=== PATIENT | female | born 1970 | race Caucasian/White ===

== ENCOUNTER → 2017-03-14 | Outpatient (CLI) | payer BC ==
--- NOTE | 2017-03-15 11:02 | MM ---
Reason for exam: screening (asymptomatic). Last mammogram was performed 1 year and 3 months ago. Physical Findings: A clinical breast exam by your physician is recommended on an annual basis and results should be correlated with mammographic findings. MG Screening Mammo w CAD Bilateral CC and MLO view(s) were taken. Prior study comparison: December 25, 2015, bilateral MG screening mammo w CAD. December 02, 2014, bilateral MG screening mammo w CAD. The breast tissue is extremely dense which could obscure a lesion on mammography. There is no discrete abnormality. No significant changes when compared with prior studies. ASSESSMENT: Negative, BI-RAD 1 RECOMMENDATION: Routine screening mammogram of both breasts in 1 year.
== END ==
LOC: RADMAMWWP 16:38
PROVIDERS: ATTEND Obstetrics & Gynecology
DX: Z12.31 Encounter for screening mammogram for malignant neoplasm of breast (principal)

== ENCOUNTER → 2018-04-06 | Outpatient (CLI) | payer BC ==
--- NOTE | 2018-04-09 10:48 | MM ---
Reason for exam: screening (asymptomatic). Last mammogram was performed 1 year and 1 month ago. Physical Findings: A clinical breast exam by your physician is recommended on an annual basis and results should be correlated with mammographic findings. MG Screening Mammo w CAD Bilateral CC and MLO view(s) were taken. Prior study comparison: March 14, 2017, bilateral MG screening mammo w CAD. December 25, 2015, bilateral MG screening mammo w CAD. The breast tissue is extremely dense which could obscure a lesion on mammography. No suspicious abnormality. No significant changes when compared with prior studies. ASSESSMENT: Negative, BI-RAD 1 RECOMMENDATION: Routine screening mammogram of both breasts in 1 year.
== END ==
LOC: RADMAMWWP 16:41
PROVIDERS: ATTEND Obstetrics & Gynecology
DX: Z12.31 Encounter for screening mammogram for malignant neoplasm of breast (principal)
CPT/HCPCS: 77067

== ENCOUNTER → 2018-11-19 | Outpatient (CLI) | payer BC ==
--- NOTE | 2018-11-20 08:59 | XR ---
EXAM TYPE: LUMBAR SPINE X RAY SERIES COMPARISON: NONE HISTORY: Lower back pain TECHNIQUE: 3 views are submitted. FINDINGS: Alignment is anatomic. The pedicles are intact. The transverse processes are intact. There is no s pondylolysis or spondylolisthesis. IMPRESSION: 1. No acute process. If symptoms persist or concern for disc herniation recommend follow-up MRI.
== END | disposition home or self-care (01) ==
LOC: RADXRMAIN 16:42
PROVIDERS: ATTEND Family Medicine
DX: M54.5 Low back pain (principal)
CPT/HCPCS: 72100

== ENCOUNTER 2019-01-20 08:47 | Emergency (ER) | payer BC ==
[2019-01-20 08:54] VITALS: RESP 16
[2019-01-20] MEDS ORDERED: SODIUM CHLORIDE 0.9% 1,000 ML IV STA (09:07)
--- NOTE | 2019-01-20 09:22 | ED ---
GI Bleed HPI - General Chief complaint: GI Bleed Stated complaint: diarrhea Time Seen by Provider: 01/20/19 09:06 Source: patient, RN notes reviewed Mode of arrival: wheelchair Limitations: no limitations - History of Present Illness Initial comments: This a 48-year-old female presents emergency Department with chief complaint of abdominal pain, diarrhea and rectal bleeding. Patient states that symptoms started last night and have progressed. Patient states pain does wax and wane her pain is primarily in the lower abdomen on the right side. She's had no prior abdominal surgeries. Patient reports no noted fevers or chills. Patient denies any recent travel and no sick contacts no recent antibiotic use. She has no history of diverticulitis or any known form of colitis. Patient denies any blood thinners denies chest pain or shortness breath. She does admit to slight nausea no vomiting. - Related Data Previous Rx's Medication Instructions Recorded Dicyclomine [Bentyl] 20 mg PO TID #30 tablet 01/20/19 Allergies Allergy/AdvReac Type Severity Reaction Status Date / Time No Known Allergies Allergy Verified 01/20/19 08:53 Review of Systems ROS Statement: Those systems with pertinent positive or pertinent negative responses have been documented in the HPI. ROS Other: All systems not noted in ROS Statement are negative. Past Medical History Past Medical History: No Reported History History of Any Multi-Drug Resistant Organisms: None Reported Past Surgical History: No Surgical Hx Reported Past Psychological History: No Psychological Hx Reported Smoking Status: Never smoker Past Alcohol Use History: None Reported Past Drug Use History: None Reported General Exam Limitations: no limitations General appearance: alert, in no apparent distress Head exam: Present: atraumatic, normocephalic, normal inspection Neck exam: Present: normal inspection, full ROM. Absent: tenderness, meningismus, lymphadenopathy Respiratory exam: Present: normal lung sounds bilaterally. Absent: respiratory distress, wheezes, rales, rhonchi, stridor Cardiovascular Exam: Present: regular rate, normal rhythm, normal heart sounds. Absent: systolic murmur, diastolic murmur, rubs, gallop, clicks GI/Abdominal exam: Present: soft, tenderness (Mild to moderate right lower quadrant), normal bowel sounds. Absent: distended, guarding, rebound, rigid Back exam: Absent: CVA tenderness (R), CVA tenderness (L) Neurological exam: Present: alert, oriented X3, CN II-XII intact Skin exam: Present: warm, dry, intact, normal color. Absent: rash Course Vital Signs 01/20/19 08:50 Temperature 98.1 F Pulse Rate 70 Respiratory 16 Rate Blood Pressure 114/80 O2 Sat by Pulse 100 Oximetry Medical Decision Making - Medical Decision Making 48 show female presented for diarrhea abdominal discomfort. Patient states pain is been waxing and waning. CT shows no acute findings, lab work shows mild leukocytosis. Patient was hydrated. Patient we discharged with Bentyl and follow-up with GI. This most likely related to internal hemorrhoids versus colitis. Patient is stable for discharge her hemoglobin within normal limits. - Lab Data Result diagrams: 01/20/19 09:15 01/20/19 09:15 Lab Results 01/20/19 01/20/19 01/20/19 Range/Units 09:15 09:15 09:15 WBC 15.6 H (3.8-10.6) k/uL RBC 4.30 (3.80-5.40) m/uL Hgb 14.0 (11.4-16.0) gm/dL Hct 42.8 (34.0-46.0) % MCV 99.5 (80.0-100.0) fL MCH 32.7 (25.0-35.0) pg MCHC 32.8 (31.0-37.0) g/dL RDW 11.4 L (11.5-15.5) % Plt Count 244 (150-450) k/uL Neutrophils % 89 % Lymphocytes % 6 % Monocytes % 4 % Eosinophils % 1 % Basophils % 0 % Neutrophils # 13.9 H (1.3-7.7) k/uL Lymphocytes # 0.9 L (1.0-4.8) k/uL Monocytes # 0.6 (0-1.0) k/uL Eosinophils # 0.1 (0-0.7) k/uL Basophils # 0.0 (0-0.2) k/uL APTT (22.0-30.0) sec Sodium 139 (137-145) mmol/L Potassium 4.0 (3.5-5.1) mmol/L Chloride 103 (98-107) mmol/L Carbon Dioxide 24 (22-30) mmol/L Anion Gap 12 mmol/L BUN 16 (7-17) mg/dL Creatinine 0.68 (0.52-1.04) mg/dL Est GFR (CKD-EPI)AfAm >90 (>60 ml/min/1.73 sqM) Est GFR (CKD-EPI)NonAf >90 (>60 ml/min/1.73 sqM) Glucose 116 H (74-99) mg/dL Plasma Lactic Acid True 1.4 (0.7-2.0) mmol/L Calcium 9.5 (8.4-10.2) mg/dL Magnesium 1.8 (1.6-2.3) mg/dL Total Bilirubin 0.6 (0.2-1.3) mg/dL AST 31 (14-36) U/L ALT 30 (9-52) U/L Alkaline Phosphatase 57 (38-126) U/L Total Protein 7.8 (6.3-8.2) g/dL Albumin 4.8 (3.5-5.0) g/dL Urine Color Urine Appearance (Clear) Urine pH (5.0-8.0) Ur Specific [place] (1.001-1.035) Urine Protein (Negative) Urine Glucose (UA) (Negative) Urine Ketones (Negative) Urine Blood (Negative) Urine Nitrite (Negative) Urine Bilirubin (Negative) Urine Urobilinogen (<2.0) mg/dL Ur Leukocyte Esterase (Negative) Urine RBC (0-5) /hpf Urine WBC (0-5) /hpf Ur Squamous Epith Cells (0-4) /hpf Urine Bacteria (None) /hpf Urine Mucus (None) /hpf 01/20/19 01/20/19 Range/Units 09:15 09:15 WBC (3.8-10.6) k/uL RBC (3.80-5.40) m/uL Hgb (11.4-16.0) gm/dL Hct (34.0-46.0) % MCV (80.0-100.0) fL MCH (25.0-35.0) pg MCHC (31.0-37.0) g/dL RDW (11.5-15.5) % Plt Count (150-450) k/uL Neutrophils % % Lymphocytes % % Monocytes % % Eosinophils % % Basophils % % Neutrophils # (1.3-7.7) k/uL Lymphocytes # (1.0-4.8) k/uL Monocytes # (0-1.0) k/uL Eosinophils # (0-0.7) k/uL Basophils # (0-0.2) k/uL APTT 22.1 (22.0-30.0) sec Sodium (137-145) mmol/L Potassium (3.5-5.1) mmol/L Chloride (98-107) mmol/L Carbon Dioxide (22-30) mmol/L Anion Gap mmol/L BUN (7-17) mg/dL Creatinine (0.52-1.04) mg/dL Est GFR (CKD-EPI)AfAm (>60 ml/min/1.73 sqM) Est GFR (CKD-EPI)NonAf (>60 ml/min/1.73 sqM) Glucose (74-99) mg/dL Plasma Lactic Acid True (0.7-2.0) mmol/L Calcium (8.4-10.2) mg/dL Magnesium (1.6-2.3) mg/dL Total Bilirubin (0.2-1.3) mg/dL AST (14-36) U/L ALT (9-52) U/L Alkaline Phosphatase (38-126) U/L Total Protein (6.3-8.2) g/dL Albumin (3.5-5.0) g/dL Urine Color Yellow Urine Appearance Clear (Clear) Urine pH 7.5 (5.0-8.0) Ur Specific [place] 1.018 (1.001-1.035) Urine Protein Trace H (Negative) Urine Glucose (UA) Negative (Negative) Urine Ketones Negative (Negative) Urine Blood Trace H (Negative) Urine Nitrite Negative (Negative) Urine Bilirubin Negative (Negative) Urine Urobilinogen <2.0 (<2.0) mg/dL Ur Leukocyte Esterase Negative (Negative) Urine RBC 5 (0-5) /hpf Urine WBC 4 (0-5) /hpf Ur Squamous Epith Cells 2 (0-4) /hpf Urine Bacteria Rare H (None) /hpf Urine Mucus Few H (None) /hpf Disposition Clinical Impression: Diarrhea, Colitis Disposition: HOME SELF-CARE Condition: Stable Instructions (If sedation given, give patient instructions): Gastrointestinal Bleeding (ED) Additional Instructions: Please return to the Emergency Department if symptoms worsen or any other concerns. Prescriptions: Dicyclomine [Bentyl] 20 mg PO TID #30 tablet Is patient prescribed a controlled substance at d/c from ED?: No Referrals: Jay Martinez DO [Primary Care Provider] - 1-2 days Stephanie Vidal MD [STAFF PHYSICIAN] - 1-2 days Time of Disposition: 10:30
[2019-01-20 09:25] LABS: Basophils % (A) 0 %; Eosinophils # (A) 0.1 k/uL (0-0.7); Eosinophils % (A) 1 %; HCT 42.8 % (34.0-46.0); Lymphocytes # (A) 0.9 k/uL (1.0-4.8); Lymphocytes % (A) 6 %; MCH 32.7 pg (25.0-35.0); MCHC 32.8 g/dL (31.0-37.0); MCV 99.5 fL (80.0-100.0); Mean Platelet Volume 7.4; Monocytes # (A) 0.6 k/uL (0-1.0); Monocytes % (A) 4 %; Neutrophils # (A) 13.9 k/uL (1.3-7.7); Neutrophils % (A) 89 %; Platelet Count 244 k/uL (150-450); RDW 11.4 % (11.5-15.5); WBC 15.6 k/uL (3.8-10.6)
[2019-01-20 09:35] LABS: ALT 30 U/L (9-52); AST 31 U/L (14-36); African American GFR (CKD) >90 (>60 ml/min/1.73 sqM); Albumin 4.8 g/dL (3.5-5.0); Alkaline Phosphatase 57 U/L (38-126); Anion Gap 12 mmol/L; Blood Urea Nitrogen 16 mg/dL (7-17); Calcium 9.5 mg/dL (8.4-10.2); Carbon Dioxide 24 mmol/L (22-30); Chloride 103 mmol/L (98-107); Glucose 116 mg/dL (74-99); Magnesium 1.8 mg/dL (1.6-2.3); Sodium 139 mmol/L (137-145); Total Bilirubin 0.6 mg/dL (0.2-1.3); Total Protein 7.8 g/dL (6.3-8.2)
[2019-01-20 09:49] LABS: Appearance,Urine Clear (Clear); Bacteria,Urine Rare /hpf; Bilirubin,Urine Negative (Negative); Blood,Urine Trace (Negative); Color,Urine Yellow; Glucose,Urine (UA) Negative (Negative); Ketones,Urine Negative (Negative); Leukocyte Esterase,Urine Negative (Negative); Mucus,Urine Few /hpf; Nitrite,Urine Negative (Negative); PH, Urine 7.5 (5.0-8.0); Protein,Urine Trace (Negative); RBC,Urine 5 /hpf (0-5); Specific Gravity,Urine 1.018 (1.001-1.035); Squamous Epithelial Cell,Urine 2 /hpf (0-4); Urobilinogen,Urine <2.0 mg/dL (<2.0)
--- NOTE | 2019-01-20 10:05 | CT ---
EXAMINATION TYPE: CT abdomen pelvis w con DATE OF EXAM: 01/20/2019 REFERENCE: NONE HISTORY: Pain HISTORY: Diarrhea, GI bleed REFERENCE: NONE CT DLP: 429.4 mGy Automated exposure control for dose reduction was used. TECHNIQUE: Helical acquisition through the abdomen and pelvis was obtained following the oral ingesti on of without Oral Contrast and following intravenous administration of 100 ml mL of Isovue 300. The data was reformatted in axial, coronal and sagittal projections. FINDINGS: Visualized portions of the lungs are clear. There is a mild pectus deformity. There is a 4 .5 mm pericardial effusion. There is no pleural effusion Within the abdomen, the liver, spleen and gallbladder are normal. Both adrenal glands are normal. There is a horseshoe kidney. There is a simple appearing, 12 mm cyst in the upper pole of the left re nal moiety. There is an 8 mm cyst near pole right renal moiety. 6.3 cm solid mass in the uterine fundus likely representing a fibroid. Right ovary is unremarkable. T he left ovary is not clearly visualized. The bladder is unremarkable. There is no significant diverticular change and there is no radiographic evidence of diverticulosis. The appendix is not visualized with certainty. Small bowel loops are normal caliber. There is no evidence of free air. There is a scant amount of fr ee fluid. No osseous lesion is seen. IMPRESSION: 1. HORSESHOE KIDNEY. 2. SIMPLE APPEARING UPPER POLE CYST IN BOTH KIDNEYS. 3. 4.5 MM PERICARDIAL EFFUSION. 4. 6.3 SOLID MASS IN THE UTERINE FUNDUS LIKELY REPRESENTS A FIBROID.
[2019-01-20] MEDS ORDERED: ONDANSETRON 4 MG/2 ML VIAL IVP STA (10:17)
[2019-01-20] MEDS ORDERED: MORPHINE SULFATE 2 MG/ML SYRINGE IVP ONE (10:17)
[2019-01-20] MEDS ORDERED: DICYCLOMINE 20 MG TAB PO STA (10:18)
[2019-01-20 11:07] VITALS: BP 111/59; PULSE 66; TEMP 98
== END 2019-01-20 11:09 | disposition home or self-care (01) ==
LOC: EC 08:47
DX: K52.9 Noninfective gastroenteritis and colitis, unspecified (principal); N28.1 Cyst of kidney, acquired
CPT/HCPCS: 99284; 96374; 96375; 96361; 36415; 80053; 83605; 83735; 85025; 85730; 81001; 74177; J2405; J2270; Q9967

== ENCOUNTER → 2019-05-02 | Outpatient (CLI) | payer BC ==
--- NOTE | 2019-05-03 11:04 | MM ---
Reason for exam: screening (asymptomatic). Last mammogram was performed 1 year and 1 month ago. Physical Findings: A clinical breast exam by your physician is recommended on an annual basis and results should be correlated with mammographic findings. MG Screening Mammo w CAD Bilateral CC and MLO view(s) were taken. Prior study comparison: April 06, 2018, bilateral MG screening mammo w CAD. March 14, 2017, bilateral MG screening mammo w CAD. The breast tissue is extremely dense which could obscure a lesion on mammography. No suspicious abnormality. No significant changes when compared with prior studies. ASSESSMENT: Negative, BI-RAD 1 RECOMMENDATION: Routine screening mammogram of both breasts in 1 year.
== END ==
LOC: RADMAMWWP 16:33
PROVIDERS: ATTEND Obstetrics & Gynecology
DX: Z12.31 Encounter for screening mammogram for malignant neoplasm of breast (principal)
CPT/HCPCS: 77067

== ENCOUNTER → 2019-05-15 | Outpatient (CLI) | payer BC ==
--- NOTE | 2019-05-15 23:58 | MR ---
MRI CERVICAL SPINE: And thoracic spine CLINICAL HISTORY: Neck pain back pain TECHNIQUE: Multiplanar, multisequence imaging of the cervical spine and thoracic spine is performed w ithout contrast, COMPARISON: Thoracic vertebra have normal alignment. Disc spaces are fairly normal. Thoracic spinal cord has norm al signal pattern. There is no edema. There is some fat deposition at the base of the neck posteriorl y. There is no thoracic compression fracture. There is no thoracic paraspinal mass. Thoracic spinal c ord shows no evidence of a mass. There is no edema. Posterior elements are intact. The cervical vertebra show mild straightening. There is some degenerative disc space narrowing at C5- 6 and C6-7 with some spurring of the endplates. There is developmentally large spinal canal. There is no spinal stenosis. There is a mild posterior disc herniation at C5-6. The canal measures 9 mm at C5 -6. There is small disc herniation also at C6-7 posteriorly. The brainstem is intact. Cervical spinal cord has normal signal pattern. There is no edema. I see no bony destructive process. IMPRESSION: Spondylosis at C5-6 and C6-7 with small posterior disc herniations but no spinal stenosis. Negative MR scan of the thoracic spine. No fracture. No thoracic spinal stenosis.
== END | disposition home or self-care (01) ==
LOC: RADMRIMAIN 16:02
PROVIDERS: ATTEND Family Medicine
DX: M50.222 Other cervical disc displacement at C5-C6 level (principal); M47.812 Spondylosis without myelopathy or radiculopathy, cervical region; M54.6 Pain in thoracic spine
CPT/HCPCS: 72141; 72146

== ENCOUNTER → 2019-12-10 | Outpatient (CLI) | payer BC ==
[2019-12-10 08:37] LABS: Basophils % (A) 0 %; Color,Urine Dark Yellow; Eosinophils # (A) 0.1 k/uL (0-0.7); Eosinophils % (A) 1 %; HCT 43.9 % (34.0-46.0); Lymphocytes # (A) 1.6 k/uL (1.0-4.8); Lymphocytes % (A) 31 %; MCHC 31.9 g/dL (31.0-37.0); MCV 106.7 fL (80.0-100.0); Macrocytosis Slight; Mean Platelet Volume 7.8; Monocytes # (A) 0.4 k/uL (0-1.0); Monocytes % (A) 8 %; Neutrophils % (A) 57 %; Platelet Count 238 k/uL (150-450); RBC 4.12 m/uL (3.80-5.40); RDW 11.8 % (11.5-15.5); WBC 5.2 k/uL (3.8-10.6)
[2019-12-10 08:39] LABS: Appearance,Urine Clear (Clear); Protein,Urine Negative (Negative)
[2019-12-10 08:40] LABS: Bilirubin,Urine Negative (Negative); Blood,Urine Small (Negative); Glucose,Urine (UA) Negative (Negative); Ketones,Urine Negative (Negative); Leukocyte Esterase,Urine Negative (Negative); Nitrite,Urine Negative (Negative); Urobilinogen,Urine <2.0 mg/dL (<2.0)
[2019-12-10 11:52] LABS: Erythrocyte Sedimentation Rate 5 mm/hr (0-20)
[2019-12-10 17:28] LABS: Streptolysin O Ab(ASO) 51 IU/mL (0-200)
[2019-12-10 18:04] LABS: ALT 27 U/L (8-44); AST 26 U/L (13-35); African American GFR (CKD) 101.8 (60.0-200.0); Albumin/Globulin Ratio 2.05 (1.60-3.17); Alkaline Phosphatase 60 U/L (41-126); C Reactive Protein <0.4 mg/dL (0.0-0.8); Calcium 9.2 mg/dL (8.7-10.3); Carbon Dioxide 29.3 mmol/L (21.6-31.8); Chloride 105 mmol/L (96-109); Creatine Kinase 95 U/L (26-186); Globulin 2.2 g/dL (1.6-3.3); Glucose 67 mg/dL (70-110); LDH 167 U/L (120-246); Non-African American GFR(CKD) 87.8 (60.0-200.0); Phosphorus 3.6 mg/dL (2.4-5.1); Potassium 4.1 mmol/L (3.5-5.5); Rheumatoid Factor, Qnt 7 IU/mL (0-15); Sodium 142 mmol/L (135-145); Total Bilirubin 0.4 mg/dL (0.3-1.2); Total Protein 6.7 g/dL (6.2-8.2); Uric Acid 3.7 mg/dL (2.9-7.7)
[2019-12-10 18:21] LABS: Cyclic Citrull Pep IgG Unit 1.9 U/mL; Cyclic Citrullinated Pep IgG NEGATIVE (NEGATIVE)
[2019-12-11 10:15] LABS: HLA B27 NEGATIVE
[2019-12-11 11:54] LABS: ANA Pattern Speckled
[2019-12-11 12:15] LABS: Vitamin D, 1, 25-Dihydroxy 63 pg/mL (20 - 79)
[2019-12-11 13:54] LABS: Angiotensin-1 Converting Enz. 20 U/L (8-52)
[2019-12-12 07:13] LABS: Vit B1(Thiamine) 65 ug/L (38-122)
== END | disposition home or self-care (01) ==
LOC: LABWHC1 07:25
PROVIDERS: ATTEND Physical Medicine & Rehabilitation
DX: M50.222 Other cervical disc displacement at C5-C6 level (principal); M50.322 Other cervical disc degeneration at C5-C6 level; M50.323 Other cervical disc degeneration at C6-C7 level; M79.12 Myalgia of auxiliary muscles, head and neck; M35.7 Hypermobility syndrome; M79.18 Myalgia, other site; M54.6 Pain in thoracic spine
CPT/HCPCS: 36415; 80053; 81001; 82164; 82306; 82310; 82550; 82553; 82607; 82652; 83036; 83516; 83520; 83615; 83970; 84100; 84207; 84425; 84443; 84550; 85025; 85652; 86038; 86039; 86060; 86140; 86200; 86235; 86431; 86618; 86812; 87522

== ENCOUNTER → 2020-07-30 | Outpatient (CLI) | payer BC ==
--- NOTE | 2020-08-04 11:45 | MM ---
Reason for exam: screening (asymptomatic). Last mammogram was performed 1 year and 3 months ago. Physical Findings: A clinical breast exam by your physician is recommended on an annual basis and results should be correlated with mammographic findings. MG Screening Mammo w CAD Bilateral CC and MLO view(s) were taken. Prior study comparison: May 02, 2019, bilateral MG screening mammo w CAD. April 06, 2018, bilateral MG screening mammo w CAD. The breast tissue is extremely dense which could obscure a lesion on mammography. Finding: There is a typically benign 6 mm circumscribed oval mass located 4 cm from the nipple in the lower outer quadrant, anterior position of the right breast. ASSESSMENT: Incomplete: need additional imaging evaluation, BI-RAD 0 RECOMMENDATION: Special view mammogram and ultrasound of the right breast. [facility] will attempt to contact patient to return for supplemental views and ultrasound.
== END | disposition home or self-care (01) ==
LOC: RADMAMWWP 16:35
PROVIDERS: ATTEND Obstetrics & Gynecology
DX: Z12.31 Encounter for screening mammogram for malignant neoplasm of breast (principal)
CPT/HCPCS: 77067

== ENCOUNTER → 2020-08-14 | Outpatient (CLI) | payer BC ==
--- NOTE | 2020-08-14 14:52 | MM ---
Reason for exam: additional evaluation requested from abnormal screening. Last mammogram was performed less than 1 month ago. Physical Findings: Nurse did not find any significant physical abnormalities on exam. MG Work Up Mamm w CAD RT Spot compression CC, spot compression MLO, and LM view(s) were taken of the right breast. Prior study comparison: July 30, 2020, bilateral MG screening mammo w CAD. May 02, 2019, bilateral MG screening mammo w CAD. The breast tissue is extremely dense which could obscure a lesion on mammography. Focal asymmetry 0.4cm outer CC view, 4cm from nipple. These results were verbally communicated with the patient and result sheet given to the patient on 08/14/20. ASSESSMENT: Incomplete: need additional imaging evaluation, BI-RAD 0 RECOMMENDATION: Ultrasound of the right breast.
--- NOTE | 2020-08-14 14:54 | USB ---
Reason for exam: additional evaluation requested from abnormal screening. US Breast Workup Limited RT Right limited breast ultrasound including focal area of concern, retroareolar and axilla demonstrates a 0.7 x 0.7 x 0.3cm cystic lesion at 6 o'clock and a 0.4 x 0.4 x 0.3cm cystic lesion at 8 o'clock. These results were verbally communicated with the patient and result sheet given to the patient on 08/14/20. ASSESSMENT: Probably benign, BI-RAD 3 RECOMMENDATION: Follow-up diagnostic mammogram and ultrasound of the right breast in 6 months.
== END | disposition home or self-care (01) ==
LOC: RADMAMWWP 13:24
PROVIDERS: ATTEND Obstetrics & Gynecology
DX: R92.8 Other abnormal and inconclusive findings on diagnostic imaging of breast (principal)
CPT/HCPCS: 77065

== ENCOUNTER → 2020-11-20 | Outpatient (CLI) | payer BC ==
--- NOTE | 2020-11-20 20:41 | XR ---
EXAMINATION TYPE: XR knee complete LT DATE OF EXAM: 11/20/2020 COMPARISON: NONE HISTORY: Pain TECHNIQUE: Three views are submitted. FINDINGS: Joint spaces are preserved. Osseous structures are intact. No acute fracture seen. IMPRESSION: 1. No acute fracture or dislocation.
--- NOTE | 2020-11-20 20:43 | XR ---
EXAMINATION TYPE: XR Hip Bilateral Complete DATE OF EXAM: 11/20/2020 COMPARISON: NONE HISTORY: Pain TECHNIQUE: 2 views of each hip is submitted FINDINGS: There is no evidence of erosive change or acute fracture. Mild hypertrophic change of the acetabulum. Pubic rami appear intact. Visualized SI joints have a nor mal appearance. IMPRESSION: 1. Mild hypertrophic changes of the acetabulum bilaterally can occasionally be associated with femora l acetabular impingement, correlate clinically.
== END | disposition home or self-care (01) ==
LOC: RADXRMAIN 16:09
PROVIDERS: ATTEND Family Medicine
DX: M25.551 Pain in right hip (principal); M25.552 Pain in left hip; M25.562 Pain in left knee
CPT/HCPCS: 73521

== ENCOUNTER → 2021-02-17 | Outpatient (CLI) | payer BC ==
--- NOTE | 2021-02-18 09:13 | MM ---
Reason for exam: follow-up at short interval from prior study. Last mammogram was performed 6 months ago. Physical Findings: Nurse did not find any significant physical abnormalities on exam. MG Diagnostic Mammo RT w CAD CC and MLO view(s) were taken of the right breast. Prior study comparison: August 14, 2020, right breast MG work up mamm w CAD RT. July 30, 2020, bilateral MG screening mammo w CAD. The breast tissue is extremely dense which could obscure a lesion on mammography. There is no discrete abnormality including area of concern. These results were verbally communicated with the patient and result sheet given to the patient on 02/17/21. ASSESSMENT: Incomplete: need additional imaging evaluation, BI-RAD 0 RECOMMENDATION: Ultrasound of the right breast.
--- NOTE | 2021-02-18 09:14 | USB ---
Reason for exam: additional evaluation requested from abnormal screening. US Breast Limited RT Right limited breast ultrasound including focal area of concern, retroareolar and axilla demonstrates a 0.8 x 0.4 x 0.7cm oval, cystic lesion at 6 o'clock and a 0.4 x 0.4 x 0.4cm round, cystic lesion at 8 o'clock. These results were verbally communicated with the patient and result sheet given to the patient on 02/17/21. ASSESSMENT: Probably benign, BI-RAD 3 RECOMMENDATION: Follow-up diagnostic mammogram of both breasts in 6 months. Back on schedule. Ultrasound of the right breast in 6 months.
== END | disposition home or self-care (01) ==
LOC: RADMAMWWP 13:40
PROVIDERS: ATTEND Obstetrics & Gynecology
DX: R92.8 Other abnormal and inconclusive findings on diagnostic imaging of breast (principal)
CPT/HCPCS: 77065

== ENCOUNTER → 2021-07-09 | Outpatient (CLI) | payer OTHER ==
--- NOTE | 2021-07-09 12:54 | XR ---
EXAMINATION TYPE: XR chest 2V DATE OF EXAM: 07/09/2021 COMPARISON: NONE HISTORY: R94.2 abnormal results of PFT TECHNIQUE: Frontal and lateral views of the chest are obtained. FINDINGS: There is no focal air space opacity, pleural effusion, or pneumothorax seen. Substernal n odule is noted on the lateral exam measuring approximately 9 mm in size. The cardiac silhouette size is within normal limits. The osseous structures are intact and there is a pectus deformity present, slight spinal curvature. IMPRESSION: Indeterminate substernal nodular density, consider chest CT, there is a pectus excavatum deformity present. Mild scoliosis.
== END | disposition home or self-care (01) ==
LOC: RADXRMAIN 10:32
PROVIDERS: ATTEND Family Medicine
DX: R94.2 Abnormal results of pulmonary function studies (principal); M41.84 Other forms of scoliosis, thoracic region
CPT/HCPCS: 71046

== ENCOUNTER → 2021-08-18 | Outpatient (CLI) | payer OTHER ==
--- NOTE | 2021-08-19 11:13 | MM ---
Reason for exam: additional evaluation requested from prior study. Last mammogram was performed 6 months ago. Physical Findings: A clinical breast exam by your physician is recommended on an annual basis and results should be correlated with mammographic findings. MG Diagnostic Mammo w CAD [place] Bilateral CC and MLO view(s) were taken. LM view(s) were taken of the left breast. Prior study comparison: February 17, 2021, right breast MG diagnostic mammo RT w CAD. August 14, 2020, right breast MG work up mamm w CAD RT. The breast tissue is extremely dense which could obscure a lesion on mammography. Vague group of calcifications lower outer left breast. 6 month follow up recommended. There is no discrete abnormality including area of concern. These results were verbally communicated with the patient and result sheet given to the patient on 08/18/21. ASSESSMENT: Incomplete: need additional imaging evaluation, BI-RAD 0 Probably benign, BI-RAD 3 finding in the left breast. Incomplete: need additional imaging evaluation, BI-RAD 0 of the right breast. RECOMMENDATION: Ultrasound of the right breast. Follow-up diagnostic mammogram of the left breast in 6 months.
--- NOTE | 2021-08-19 11:18 | USB ---
Reason for exam: follow-up at short interval from prior study. US Breast Limited RT Right limited breast ultrasound including focal area of concern, retroareolar and axilla demonstrates a 0.5 x 0.3 x 0.5cm cystic lesion at 6 o'clock and a 0.3 x 0.3 x 0.3cm cystic lesion at 8 o'clock. Smaller in size. These results were verbally communicated with the patient and result sheet given to the patient on 08/18/21. ASSESSMENT: Benign, BI-RAD 2 RECOMMENDATION: Follow-up diagnostic mammogram in 6 months. (left)
== END | disposition home or self-care (01) ==
LOC: RADMAMWWP 13:49
PROVIDERS: ATTEND Obstetrics & Gynecology
DX: R92.8 Other abnormal and inconclusive findings on diagnostic imaging of breast (principal)
CPT/HCPCS: 77066

== ENCOUNTER → 2021-08-18 | Outpatient (CLI) | payer OTHER ==
--- NOTE | 2021-08-18 21:01 | CT ---
EXAMINATION TYPE: CT chest w con DATE OF EXAM: 08/18/2021 COMPARISON: X-ray dated 07/09/2021. No previous CT scan is available for comparison. HISTORY: Abnormal findings on diagnostic imaging. Hx Covid. CT DLP: 107.60 mGycm Automated exposure control for dose reduction was used. TECHNIQUE: CT scan of the chest is performed with IV Contrast, patient injected with 100 mL of Isovue 300. FINDINGS: LUNGS: 3 mm groundglass nodule is seen at the anterior aspect of the left upper lobe (image #16, seri es 4). Another groundglass nodule is seen in the right lung base laterally measuring 3 mm (image #47, series 4). 2 mm groundglass nodule at the lateral aspect of the right upper lobe (image #20, series 4). Minimal left apical pulmonary fibrotic changes. Faint groundglass infiltration seen at the fisher spear ior aspect of the left lower lobe and lateral aspect of the left upper lobe. Unremarkable remainder o f the lungs. Patent central airways. No pleural effusion. MEDIASTINUM: No gross cardiomegaly. Pectus excavatum. No sizable pericardial effusion. No pathologica lly enlarged lymph nodes in the chest. Dilated ascending aorta measuring up to 3.8 cm. OTHER: No aggressive bone lesion. Unremarkable upper abdomen. IMPRESSION: 3 groundglass nodules measuring up to 3 mm associated with scattered areas of groundglass infiltratio n in the left lower lobe and left upper lobe as described above. They could be related to pulmonary i nflammatory/infectious process. Recommend precautionary follow-up CT scan in 3 months for reassessmen t. Other incidental findings as described above.
== END | disposition home or self-care (01) ==
LOC: RADCTMAIN 14:57
PROVIDERS: ATTEND Family Medicine
DX: R91.1 Solitary pulmonary nodule (principal); R91.8 Other nonspecific abnormal finding of lung field
CPT/HCPCS: 71260; Q9967

== ENCOUNTER → 2022-03-14 | Outpatient (CLI) | payer OTHER ==
--- NOTE | 2022-03-14 15:17 | MM ---
Reason for Exam: Follow-up at short interval from prior study. Last screening mammogram was performed 6 month(s) ago. Patient History: Menarche at age 16. First Full-Term at age 21. Risk Values: Fior 5 year model risk: 0.6%. NCI Lifetime model risk: 6.1%. Prior Study Comparison: 08/14/2020 Right Diagnostic Mammogram, [facility]. 02/17/2021 Right Diagnostic Mammogram, [facility]. 08/18/2021 Bilateral Diagnostic Mammogram, [facility]. Tissue Density: Left: The breast tissue is extremely dense which could obscure a lesion on mammography. Findings: Analyzed By CAD. Subtle punctate microcalcifications 6:00 position unchanged for 6 months. This can be reassessed in another month interval. Overall Assessment: Probably benign, BI-RAD 3 Management: Diagnostic Mammogram of both breasts in 6 months. In time for the patient's annual exam. This will be a total one-year follow-up for the left breast microcalcifications. Patient should continue monthly self breast exams. Electronically signed and approved by: Purvi Delgado M.D. Radiologist
== END | disposition home or self-care (01) ==
LOC: RADMAMWWP 14:53
PROVIDERS: ATTEND Obstetrics & Gynecology
DX: R92.8 Other abnormal and inconclusive findings on diagnostic imaging of breast (principal)
CPT/HCPCS: 77065

== ENCOUNTER → 2022-07-05 | Outpatient (CLI) | payer OTHER ==
--- NOTE | 2022-07-06 15:06 | CT ---
EXAMINATION TYPE: CT chest wo con CT DLP: 98.3 mGycm, Automated exposure control for dose reduction was used. DATE OF EXAM: 07/05/2022 5:44 PM COMPARISON: CT 08/18/2021. CLINICAL INDICATION:Female, 51 years old with history of R91.8 abn findings; abnormal findings in yodit g field on prior CT TECHNIQUE: Multiple axial images were obtained through the chest. Sagittal and coronal reformats were created for review. Contrast used: none. Oral contrast used: none. FINDINGS: LUNGS/ PLEURA: Stable right upper lobe peripheral 2 mm nodule series 4 image 20, stable left upper lo be to mildly decreased groundglass opacity measuring 2 mm series 4 image 17, resolution of right lowe r lobe pulmonary nodule seen on prior. AIRWAY: Patent and unremarkable. HEART: Size within normal limits. MEDIASTINUM: No gross evidence of adenopathy. VASCULATURE: No aortic aneurysm. MUSCULOSKELETAL: No acute osseous abnormalities SOFT TISSUES/LYMPH NODES: Unremarkable. LOWER NECK: No significant findings. UPPER ABDOMEN: No significant findings. IMPRESSION: Stable bilateral upper lobe pulmonary nodules and resolution of right lower lobe pulmonary nodule. No suspicious or clinically significant pulmonary nodules.
== END | disposition home or self-care (01) ==
LOC: RADCTMAIN 17:22
PROVIDERS: ATTEND Family Medicine
DX: R91.8 Other nonspecific abnormal finding of lung field (principal)
CPT/HCPCS: 71250

== ENCOUNTER → 2022-09-12 | Outpatient (CLI) | payer OTHER ==
--- NOTE | 2022-09-12 15:06 | MM ---
Reason for Exam: Follow-up at short interval from prior study. Last screening mammogram was performed 12 month(s) ago. Patient History: Menarche at age 16. First Full-Term at age 21. Perimenopausal. Risk Values: Fior 5 year model risk: 0.6%. NCI Lifetime model risk: 6.1%. Prior Study Comparison: 02/17/2021 Right Diagnostic Mammogram, [facility]. 08/18/2021 Bilateral Diagnostic Mammogram, [facility]. 03/14/2022 Left MG diagnostic mammo LT w CAD, [facility]. Tissue Density: The breast tissue is extremely dense which could obscure a lesion on mammography. Findings: Analyzed By CAD. No suspicious calcifications evident. No new clusters seen. No mass or distortion. Overall Assessment: Benign, BI-RAD 2 Management: Screening Mammogram of both breasts in 1 year. A clinical breast exam by your physician is recommended on an annual basis and results should be correlated with mammographic findings. This exam should not preclude additional follow-up of suspicious palpable abnormalities. Results were given to the patient verbally at the time of exam. Electronically signed and approved by: Michael Ram M.D. Radiologis
== END | disposition home or self-care (01) ==
LOC: RADMAMWWP 14:43
PROVIDERS: ATTEND Obstetrics & Gynecology
DX: R92.8 Other abnormal and inconclusive findings on diagnostic imaging of breast (principal)
CPT/HCPCS: 77066

== ENCOUNTER → 2023-09-14 | Outpatient (CLI) | payer BC ==
--- NOTE | 2023-09-15 12:47 | MM ---
Reason for Exam: Screening (asymptomatic). Last screening mammogram was performed 12 month(s) ago. Patient History: Menarche at age 16. First Full-Term at age 21. Perimenopausal. Risk Values: Fior 5 year model risk: 0.6%. NCI Lifetime model risk: 6.0%. Prior Study Comparison: 08/18/2021 Bilateral Diagnostic Mammogram, [facility]. 03/14/2022 Left MG diagnostic mammo LT w CAD, [facility]. 09/12/2022 Bilateral MG diagnostic mammo w CAD [facility], [facility]. Tissue Density: The breasts are extremely dense, which lowers the sensitivity of mammography. Findings: Analyzed By CAD. The pattern is symmetrical. No significant interval change is evident. No suspicious groups of microcalcifications, spiculated or lobular masses, architectural distortion or other secondary signs of malignancy are mammographically apparent. With the extremely dense breast, this patient may benefit from 3-D mammography. Overall Assessment: Negative, BI-RAD 1 Management: Screening Mammogram of both breasts in 1 year. A negative mammogram report should not preclude additional follow up of suspicious palpable abnormalities. Patient should continue monthly self breast exam. A clinical breast exam by your physician is recommended on an annual basis and results should be correlated with mammographic findings. Electronically signed and approved by: Juan Mathis D.O. Radiologis
== END | disposition home or self-care (01) ==
LOC: RADMAMWWP 16:18
PROVIDERS: ATTEND Family Medicine
DX: Z12.31 Encounter for screening mammogram for malignant neoplasm of breast (principal)
CPT/HCPCS: 77067

== ENCOUNTER 2023-11-11 16:30 | Emergency (ER) | payer BC ==
[2023-11-11 16:38] VITALS: RESP 16; TEMP 98.4
--- NOTE | 2023-11-11 17:22 | ED ---
General Adult HPI - General Chief complaint: Chest Pain Stated complaint: chest pain Time Seen by Provider: 11/11/23 16:45 Source: patient, family, RN notes reviewed, old records reviewed Mode of arrival: ambulatory Limitations: no limitations - History of Present Illness Initial comments: 52-year-old female presenting with intermittent palpitations and chest pain. Patient states she initially attributed this to her fluoxetine which she recently discontinued. This was prescribed by her primary care provider who is aware of the symptoms this medication was causing which was mainly palpitation. She developed a substernal chest tightness yesterday evening. No radiating symptoms. No vomiting or diaphoresis. No prior history of CAD. - Related Data Previous Rx's Medication Instructions Recorded Dicyclomine [Bentyl] 20 mg PO TID #30 tablet 01/20/19 Allergies Allergy/AdvReac Type Severity Reaction Status Date / Time amoxicillin [From Amoxil] Allergy Rash/Hives Verified 11/11/23 16:35 Review of Systems ROS Statement: Those systems with pertinent positive or pertinent negative responses have been documented in the HPI. ROS Other: All systems not noted in ROS Statement are negative. Past Medical History Past Medical History: No Reported History History of Any Multi-Drug Resistant Organisms: None Reported Past Surgical History: No Surgical Hx Reported Past Psychological History: Anxiety, Depression Past Alcohol Use History: None Reported Past Drug Use History: None Reported General Exam Limitations: no limitations General appearance: alert, in no apparent distress Head exam: Present: atraumatic, normocephalic Eye exam: Present: normal appearance, PERRL, EOMI ENT exam: Present: normal exam Neck exam: Present: normal inspection Respiratory exam: Present: normal lung sounds bilaterally. Absent: respiratory distress, wheezes, rales Cardiovascular Exam: Present: regular rate, normal rhythm GI/Abdominal exam: Present: soft. Absent: distended, tenderness, guarding Extremities exam: Present: normal inspection, normal capillary refill. Absent: pedal edema, calf tenderness Neurological exam: Present: alert, oriented X3, CN II-XII intact. Absent: motor sensory deficit Psychiatric exam: Present: normal affect, normal mood Skin exam: Present: warm, dry, intact. Absent: cyanosis, diaphoretic Course Vital Signs 11/11/23 11/11/23 11/11/23 16:33 17:35 18:38 Temperature 98.4 F Pulse Rate 80 75 66 Respiratory 16 16 16 Rate Blood Pressure 148/93 133/93 123/85 O2 Sat by Pulse 99 100 97 Oximetry Medical Decision Making - Medical Decision Making Was pt. sent in by a medical professional or institution (BRITNEY Broderick, MATERIAL CLERK, urgent care, hospital, or half-way...) When possible be specific @ -No Did you speak to anyone other than the patient for history (EMS, parent, family, police, friend...)? What history was obtained from this source @ -No Did you review nursing and triage notes (agree or disagree)? Why? @ -I reviewed and agree with nursing and triage notes Were old charts reviewed (outside hosp., previous admission, EMS record, old EKG, old radiological studies, urgent care reports/EKG's, half-way records)? Report findings @ -No old charts were reviewed Differential Chest Pain: Stable Angina, Unstable Angina, STEMI, NSTEMI Aortic Dissection, Pneumothorax, Musculoskeletal, Esophageal Spasm GERD, Cholecystitis, Pancreatitis, Zoster, this is not meant to be an all-inclusive list. EKG interpreted by me (3pts min.). @ -Sinus rhythm, incomplete right bundle branch block, rate of 74, W[place] interval 137, QRS duration 101, QTc [address] segment elevation. X-rays interpreted by me (1pt min.). @Chest x-ray clear, no pneumothorax, no focal pneumonia CT interpreted by me (1pt min.). @ -None done U/S interpreted by me (1pt. min.). @ -None done What testing was considered but not performed or refused? (CT, X-rays, U/S, labs)? Why? @ -None What meds were considered but not given or refused? Why? @ -None Did you discuss the management of the patient with other professionals (professionals i.e. BRITNEY Broderick, MATERIAL CLERK, lab, RT, psych nurse, social worker palliative care, engine dispatcher, teacher, financial aid officer, protective services case worker)? Give summary @ -No Was smoking cessation discussed for >3mins.? @ -No Was critical care preformed (if so, how long)? @ -No Were there social determinants of health that impacted care today? How? (Homelessness, low income, unemployed, alcoholism, drug addiction, transportation, low edu. Level, literacy, decrease access to med. care, [facility], rehab)? @ -No Was there de-escalation of care discussed even if they declined (Discuss DNR or withdrawal of care, Hospice)? DNR status @ -No What co-morbidities impacted this encounter? (DM, HTN, Smoking, COPD, CAD, Cancer, CVA, ARF, Chemo, Hep., AIDS, mental health diagnosis, sleep apnea, morbid obesity)? @ -None Was patient admitted / discharged? Hospital course, mention meds given and route, prescriptions, significant lab abnormalities, going to OR and other pertinent info. @ -52-year-old female presenting for intermittent chest discomfort. Pain resolved at the time my evaluation and at the time of reevaluation in the emergency department. EKG is sinus without ST segment elevation. Chest x-ray is clear no acute abnormality. She has normal CBC, normal CMP, negative tro ponin. Patient eager for discharge. She has no further symptoms and will follow closely with her primary care provider. Return parameters discussed. Undiagnosed new problem with uncertain prognosis? @ -No Drug Therapy requiring intensive monitoring for toxicity (Heparin, Nitro, Insulin, Cardizem)? @ -No Were any procedures done? @ -No Diagnosis/symptom? @Chest pain, resolved Acute, or Chronic, or Acute on Chronic? @ -Acute] Uncomplicated (without systemic symptoms) or Complicated (systemic symptoms)? @ -Default Side effects of treatment? @ -No Exacerbation, Progression, or Severe Exacerbation? @ -No Poses a threat to life or bodily function? How? (Chest pain, [place], [place], pneumonia, PE, COPD, DKA, ARF, appy, cholecystitis, CVA, Diverticulitis, Homicidal, Suicidal, threat to staff... and all critical care pts) @ -Low risk at this time - Lab Data Result diagrams: 11/11/23 18:26 11/11/23 18:26 Lab Results 11/11/23 11/11/23 11/11/23 Range/Units 18:26 18:26 18: WBC 8.5 (3.8-10.6) k/uL RBC 4.21 (3.80-5.40) m/uL Hgb 14.3 (11.4-16.0) gm/dL Hct 43.7 (34.0-46.0) % MCV 103.9 H (80.0-100.0) fL MCH 34.0 (25.0-35.0) pg MCHC 32.8 (31.0-37.0) g/dL RDW 11.3 L (11.5-15.5) % Plt Count 239 (150-450) k/uL MPV 7.5 Neutrophils % 67 % Lymphocytes % 23 % Monocytes % 7 % Eosinophils % 1 % Basophils % 1 % Neutrophils # 5.6 (1.3-7.7) k/uL Lymphocytes # 2.0 (1.0-4.8) k/uL Monocytes # 0.6 (0-1.0) k/uL Eosinophils # 0.1 (0-0.7) k/uL Basophils # 0.1 (0-0.2) k/uL PT 9.8 L (10.0-12.5) sec INR 0.9 (<1.2) APTT 23.4 (22.0-30.0) sec Sodium 140 (137-145) mmol/L Potassium 3.7 (3.5-5.1) mmol/L Chloride 105 (98-107) mmol/L Carbon Dioxide 28 (22-30) mmol/L Anion Gap 7 mmol/L BUN 20 H (7-17) mg/dL Creatinine 0.87 (0.52-1.04) mg/dL Est GFR (CKD-EPI)AfAm >90 (>60 ml/min/1.73 sqM) Est GFR (CKD-EPI)NonAf 78 (>60 ml/min/1.73 sqM) Glucose 92 (74-99) mg/dL Calcium 9.6 (8.4-10.2) mg/dL Magnesium 2.0 (1.6-2.3) mg/dL Total Bilirubin 0.2 (0.2-1.3) mg/dL AST 28 (14-36) U/L ALT 31 (4-34) U/L Alkaline Phosphatase 68 (38-126) U/L Troponin I (0.000-0.034) ng/mL Total Protein 7.1 (6.3-8.2) g/dL Albumin 4.5 (3.5-5.0) g/dL 11/11/23 Range/Units 18:26 WBC (3.8-10.6) k/uL RBC (3.80-5.40) m/uL Hgb (11.4-16.0) gm/dL Hct (34.0-46.0) % MCV (80.0-100.0) fL MCH (25.0-35.0) pg MCHC (31.0-37.0) g/dL RDW (11.5-15.5) % Plt Count (150-450) k/uL MPV Neutrophils % % Lymphocytes % % Monocytes % % Eosinophils % % Basophils % % Neutrophils # (1.3-7.7) k/uL Lymphocytes # (1.0-4.8) k/uL Monocytes # (0-1.0) k/uL Eosinophils # (0-0.7) k/uL Basophils # (0-0.2) k/uL PT (10.0-12.5) sec INR (<1.2) APTT (22.0-30.0) sec Sodium (137-145) mmol/L Potassium (3.5-5.1) mmol/L Chloride (98-107) mmol/L Carbon Dioxide (22-30) mmol/L Anion Gap mmol/L BUN (7-17) mg/dL Creatinine (0.52-1.04) mg/dL Est GFR (CKD-EPI)AfAm (>60 ml/min/1.73 sqM) Est GFR (CKD-EPI)NonAf (>60 ml/min/1.73 sqM) Glucose (74-99) mg/dL Calcium (8.4-10.2) mg/dL Magnesium (1.6-2.3) mg/dL Total Bilirubin (0.2-1.3) mg/dL AST (14-36) U/L ALT (4-34) U/L Alkaline Phosphatase (38-126) U/L Troponin I <0.012 (0.000-0.034) ng/mL Total Protein (6.3-8.2) g/dL Albumin (3.5-5.0) g/dL Disposition Clinical Impression: Chest pain Disposition: HOME SELF-CARE Condition: Good Instructions (If sedation given, give patient instructions): Chest Pain (ED) Is patient prescribed a controlled substance at d/c from ED?: No Referrals: Jay Martinez DO [Primary Care Provider] - 1-2 days Time of Disposition: 19:48
[2023-11-11 19:01] VITALS: BP 123/85
[2023-11-11 19:03] LABS: ALT 31 U/L (4-34); AST 28 U/L (14-36); African American GFR (CKD) >90 (>60 ml/min/1.73 sqM); Albumin 4.5 g/dL (3.5-5.0); Alkaline Phosphatase 68 U/L (38-126); Anion Gap 7 mmol/L; Blood Urea Nitrogen 20 mg/dL (7-17); Calcium 9.6 mg/dL (8.4-10.2); Carbon Dioxide 28 mmol/L (22-30); Chloride 105 mmol/L (98-107); Glucose 92 mg/dL (74-99); Non-African American GFR(CKD) 78 (>60 ml/min/1.73 sqM); Potassium 3.7 mmol/L (3.5-5.1); Sodium 140 mmol/L (137-145); Total Bilirubin 0.2 mg/dL (0.2-1.3); Total Protein 7.1 g/dL (6.3-8.2)
[2023-11-11 19:06] LABS: INR 0.9 (<1.2); Partial Thromboplastin Time 23.4 sec (22.0-30.0); Prothrombin Time 9.8 sec (10.0-12.5)
[2023-11-11 19:10] LABS: Basophils # (A) 0.1 k/uL (0-0.2); Basophils % (A) 1 %; Eosinophils # (A) 0.1 k/uL (0-0.7); Eosinophils % (A) 1 %; HCT 43.7 % (34.0-46.0); HGB 14.3 gm/dL (11.4-16.0); Lymphocytes % (A) 23 %; MCHC 32.8 g/dL (31.0-37.0); MCV 103.9 fL (80.0-100.0); Mean Platelet Volume 7.5; Monocytes # (A) 0.6 k/uL (0-1.0); Monocytes % (A) 7 %; Neutrophils # (A) 5.6 k/uL (1.3-7.7); Neutrophils % (A) 67 %; Platelet Count 239 k/uL (150-450); RBC 4.21 m/uL (3.80-5.40); RDW 11.3 % (11.5-15.5); WBC 8.5 k/uL (3.8-10.6)
--- NOTE | 2023-11-11 20:17 | XR ---
EXAMINATION TYPE: XR chest 2V DATE OF EXAM: 11/11/2023 5:43 PM CLINICAL INDICATION:Female, 52 years old with history of Chest Pain; [facility] COMPARISON: 07/09/2021 TECHNIQUE: XR chest 2V. Frontal and lateral views of the chest.. FINDINGS: Lines/Tubes/Devices: No indwelling lines are seen. Monitor leads over the chest. Heart/mediastinum: Heart size is normal. Mediastinum appears normal. Pulmonary vascularity: Not increased, Lungs/Pleura: Lungs again appear hyperinflated with mild interstitial coarsening and increased retros ternal clear space, which can be seen with COPD. Pectus excavatum deformity probably also contributes to the appearance. There is no evidence of pleural effusion, focal consolidation, or pneumothorax. Nodules were seen on prior CT scans, not well seen on this study. If of concern, CT follow-up would b e advised. Musculoskeletal: No acute osseous abnormality demonstrated in the limits of the exam. Mild degenerat wilmer changes of the thoracic spine with some straightening of the normal kyphosis and slight levocurva ture of the upper thoracic spine. Other findings: None. IMPRESSION: No acute cardiopulmonary abnormality.
[2023-11-11 20:36] VITALS: PULSE 67
== END 2023-11-11 22:01 | disposition home or self-care (01) ==
LOC: EC 16:30
DX: I45.10 Unspecified right bundle-branch block (principal); Z88.0 Allergy status to penicillin
CPT/HCPCS: 36415; 71046; 80053; 83735; 84484; 85025; 85610; 85730; 93005; 99285

== ENCOUNTER → 2024-01-10 | Outpatient (CLI) | payer BC ==
--- NOTE | 2024-01-10 14:33 | FL ---
ESOPHOGRAM. HISTORY: Dysphagia Esophagram was performed per the air contrast technique. The patient swallowed barium and effervesce nt crystals without difficulty or delay. Esophageal peristalsis and motility appear to be within normal limits. There is no evidence for filling defect, mass or diverticulum. No hiatal hernia seen. Subsequently single contrast cervical esophagram was performed which fails demonstrate evidence for a spiration penetration or mass. IMPRESSION: Unremarkable study.
== END | disposition home or self-care (01) ==
LOC: RADFLWHC 10:28
PROVIDERS: ATTEND Otolaryngology
DX: K21.9 Gastro-esophageal reflux disease without esophagitis (principal)
CPT/HCPCS: 74220

== ENCOUNTER → 2024-09-16 | Outpatient (CLI) | payer BC ==
--- NOTE | 2024-09-16 09:23 | MM ---
Reason for Exam: Screening (asymptomatic). Last screening mammogram was performed 12 month(s) ago. Patient History: Menarche at age 16. First Full-Term at age 21. Perimenopausal. Risk Values: Fior 5 year model risk: 0.7%. NCI Lifetime model risk: 5.9%. Prior Study Comparison: 03/14/2022 Left MG diagnostic mammo LT w CAD, [facility]. 09/12/2022 Bilateral MG diagnostic mammo w CAD [facility], [facility]. 09/14/2023 Bilateral MG screening mammo w CAD, [facility]. Tissue Density: The breasts are extremely dense, which lowers the sensitivity of mammography. Findings: Analyzed By CAD. There is no suspicious group of microcalcifications in either breast. Nodular density upper outer right breast measuring 5 to 6 mm and approximately 6.5 cm from the nipple. Additional views are recommended. Asymmetric nodular density left breast upper outer quadrant 3.8 cm from the nipple measuring 7.6 mm in size. Additional views are also recommended of the left breast. Overall Assessment: Incomplete: need additional imaging evaluation, BI-RAD 0 Management: Diagnostic Mammogram of both breasts. . Patient should continue monthly self-breast exams. A clinical breast exam by your physician is recommended on an annual basis. This exam should not preclude additional follow-up of suspicious palpable abnormalities. Note on Fior scores and lifetime risk: 1. A Fior score greater than 3% is considered moderate risk. If this is the case, consider specialist referral to assess eligibility for a risk reducing agent. 2. If overall lifetime risk for the development of breast cancer is 20% or higher, the patient may qualify for future screening with alternating mammogram and breast MRI. [facility], , 09/16/2024 9:19 AM. Electronically signed and approved by: Michael Ram M.D. Radiologis
== END | disposition home or self-care (01) ==
LOC: RADMAMWWP 08:56
PROVIDERS: ATTEND Obstetrics & Gynecology
DX: Z12.31 Encounter for screening mammogram for malignant neoplasm of breast (principal); R92.343 Mammographic extreme density, bilateral breasts
CPT/HCPCS: 77063; 77067

== ENCOUNTER → 2024-09-18 | Outpatient (CLI) | payer BC ==
--- NOTE | 2024-09-18 10:37 | MM ---
Reason for Exam: Additional evaluation requested from abnormal screening. Last screening mammogram was performed less than 1 month ago. Patient History: Menarche at age 16. First Full-Term at age 21. Perimenopausal. Risk Values: Fior 5 year model risk: 0.7%. NCI Lifetime model risk: 5.9%. Prior Study Comparison: 09/14/2023 Bilateral MG screening mammo w CAD, [facility]. 09/16/2024 Bilateral MG 3D screening mammo w/cad, [facility]. Tissue Density: The breasts are extremely dense, which lowers the sensitivity of mammography. Findings: Analyzed By CAD. Right breast: 6.5 mm nodule upper outer right breast approximately 5.5 cm from the nipple. Additional nodules seen. Left breast: 9 mm nodule upper outer left breast 5 cm from the nipple. Overall Assessment: Incomplete: need additional imaging evaluation, BI-RAD 0 Management: Diagnostic Breast Ultrasound of both breasts. . Results were given to the patient verbally at the time of exam. Patient should continue monthly self-breast exams. A clinical breast exam by your physician is recommended on an annual basis. This exam should not preclude additional follow-up of suspicious palpable abnormalities. Note on Fior scores and lifetime risk: 1. A Fior score greater than 3% is considered moderate risk. If this is the case, consider specialist referral to assess eligibility for a risk reducing agent. 2. If overall lifetime risk for the development of breast cancer is 20% or higher, the patient may qualify for future screening with alternating mammogram and breast MRI. [facility], , 09/18/2024 10:33 AM. Electronically signed and approved by: Michael Ram M.D. Radiologis
--- NOTE | 2024-09-18 11:11 | USB ---
Reason for Exam: Additional evaluation requested from abnormal screening. Patient History: Menarche at age 16. First Full-Term at age 21. Perimenopausal. Risk Values: Fior 5 year model risk: 0.7%. NCI Lifetime model risk: 5.9%. Technique: Method: Targeted. Prior Study Comparison: 09/12/2022 Bilateral MG diagnostic mammo w CAD [facility], [facility]. 09/14/2023 Bilateral MG screening mammo w CAD, [facility]. 09/16/2024 Bilateral MG 3D screening mammo w/cad, [facility]. Findings: The upper outer quadrant of both breasts, the axilla of both breasts and the retroareolar of both breasts were scanned. Right breast: At the right 9:00 position there is a cyst too small to characterize hypoechoic lesion measuring 5 x 2 mm. Six-month follow-up is recommended. Left breast: Mildly complex cyst noted with small internal septation suggested measuring 6 x 5 x 3 mm. Six-month follow-up recommended. No suspicious masses seen bilaterally. Left axilla: Normal lymph node identified. Overall Assessment: Probably benign, BI-RAD 3 Management: Diagnostic Breast Ultrasound of both breasts in 6 months. A clinical breast exam by your physician is recommended on an annual basis and results should be correlated with mammographic findings. This exam should not preclude additional follow-up of suspicious palpable abnormalities. Results were given to the patient verbally at the time of exam. [facility], , 09/18/2024 11:05 AM. Electronically signed and approved by: Michael Ram M.D. Radiologis
== END | disposition home or self-care (01) ==
LOC: RADMAMWWP 10:01
PROVIDERS: ATTEND Obstetrics & Gynecology
DX: R92.8 Other abnormal and inconclusive findings on diagnostic imaging of breast (principal); R92.343 Mammographic extreme density, bilateral breasts
CPT/HCPCS: 77062; 77066